=== PATIENT | female | born 1990 ===

== ENCOUNTER 2018-07-04 10:52 | Outpatient (CLI) | payer SELFPAY | END 2018-07-04 10:53 | disposition home or self-care (01) | LOC: C.LAB 10:52 ==

== ENCOUNTER 2018-10-03 10:52 | Outpatient (CLI) | payer SELFPAY | END 2018-10-03 10:53 | disposition home or self-care (01) | LOC: C.LAB 10:52 ==

== ENCOUNTER 2018-11-29 14:05 | Outpatient (CLI) | payer SELFPAY | END 2018-11-29 14:06 | disposition home or self-care (01) | LOC: C.LAB 14:05 ==